=== PATIENT | female | born 1955 | race Caucasian/White ===

== ENCOUNTER 2024-09-04 09:31 | Emergency (ER) | payer MEDICARE, OTHER ==
[~2024-09-04] VITALS: Ht 157.5 cm; Wt 62.1 kg
[2024-09-04] MEDS ORDERED: NS 1,000 ML IV SCH (09:50)
[2024-09-04] MEDS ORDERED: Morphine Sulfate 4 MG/1 ML Injection IV ONE ×2 (09:50→10:55)
[2024-09-04 10:21] LABS: BASOPHILS ABSOLUTE AUTO 0.02 K/mm3 (0.00-0.23); BASOPHILS PERCENT AUTO 0 % (0-2); EOSINOPHILS PERCENT AUTO 0 % (0-6); Hematocrit 36.7 % (33.0-51.0); Hemoglobin 12.5 g/dL (11.5-16.0); IMMATURE GRAN ABSOLUTE AUTO 0.01 K/mm3 (0.00-0.10); IMMATURE GRAN PERCENT AUTO 0 % (0-1); LYMPHOCYTES ABSOLUTE AUTO 0.21 K/mm3 (0.84-5.20); LYMPHOCYTES PERCENT AUTO 3 % (21-46); MONOCYTES ABSOLUTE AUTO 0.48 K/mm3 (0.16-1.47); MONOCYTES PERCENT AUTO 6 % (4-13); Mean Corpuscular HGB 33.2 pg (26.0-34.0); Mean Corpuscular HGB Conc 34.1 g/dL (31.5-36.5); Mean Corpuscular Volume 97 fL (80-100); Mean Platelet Volume 10.7 fL (9.1-12.4); NEUTROPHILS ABSOLUTE AUTO 7.58 K/mm3 (1.96-9.15); NEUTROPHILS PERCENT AUTO 91 % (41-73); Platelet Count 263 K/mm3 (150-400); RDW Coefficient Variation 14.6 % (11.7-14.2); RDW Standard Deviation 52.3 fL (35.1-46.3); Red Blood Cell Count 3.77 M/mm3 (3.80-5.20)
[2024-09-04 10:40] LABS: Albumin, Blood 3.9 g/dL (3.4-5.0); Bilirubin, Total 0.8 mg/dL (0.1-1.0); Bun/Creatinine Ratio 21.4 (12.0-20.0); Calcium, Blood 9.9 mg/dL (8.5-10.1); Creatinine, Blood 0.75 mg/dL (0.40-1.00); Globulin, Blood 3.8 g/dL (2.2-4.0); Potassium, Blood 3.7 mmol/L (3.5-5.5); Total Protein, Blood 7.7 g/dL (6.4-8.2)
[2024-09-04] MEDS ORDERED: LORazepam 2 MG/ML 1ML Injection IV ONE (10:50)
[2024-09-04] MEDS ORDERED: Famotidine 10 MG/ML 2ML Vial IV ONE (10:50)
[2024-09-04] MEDS ORDERED: ONDA4ODT MM (13:03)
[2024-09-04] MEDS ORDERED: DIPATR PO (13:03)
[2024-09-04] MEDS ORDERED: Diphenoxylat/Atrop 2.5 / 0.025MG 1 Tab PO ONE (13:05)
== END 2024-09-04 13:31 | disposition home or self-care (01) ==
LOC: ER 09:31
PROVIDERS: Emergency Medicine
DX: K52.9 Noninfective gastroenteritis and colitis, unspecified (principal)
CPT/HCPCS: 74177; 80053; 83690; 85025; 93005; 93010; 96374-59; 96375; 96376; 99285-25; A9270; J2060; J2270; J7030; Q9967